=== PATIENT | male | born 1935 | race Two or more races ===

== ENCOUNTER 2017-06-07 06:32 | Outpatient (CLI) | payer OTHER ==
[~2017-06-07 06:32] MED LIST: AVANDARYL 4 MG-1 TA2 PO; CIPRO500 MG PO; COUMADIN6 MG PO; COZAAR100 MG PO; GLIMEPIRIDE4 MG; JANUMET 50-1,1 UDTAB; LOPERAMIDE2 MG PO; VYTORIN 10-20 M1 TAB PO
== END 2017-06-07 06:39 | disposition home or self-care (01) ==
LOC: LAB 06:32
DX: D50.0 Iron deficiency anemia secondary to blood loss (chronic) (principal); E11.65 Type 2 diabetes mellitus with hyperglycemia; Z12.11 Encounter for screening for malignant neoplasm of colon; K62.5 Hemorrhage of anus and rectum; R10.9 Unspecified abdominal pain; E78.2 Mixed hyperlipidemia; N40.0 Benign prostatic hyperplasia without lower urinary tract symptoms; E03.0 Congenital hypothyroidism with diffuse goiter; N39.0 Urinary tract infection, site not specified; E55.9 Vitamin D deficiency, unspecified; M81.0 Age-related osteoporosis without current pathological fracture; E11.29 Type 2 diabetes mellitus with other diabetic kidney complication; I48.91 Unspecified atrial fibrillation

== ENCOUNTER 2017-06-10 08:16 | Outpatient (CLI) | payer OTHER | END 2017-06-10 08:26 | disposition home or self-care (01) | LOC: LAB 08:16 | DX: D50.0 Iron deficiency anemia secondary to blood loss (chronic) (principal); E11.65 Type 2 diabetes mellitus with hyperglycemia; Z12.11 Encounter for screening for malignant neoplasm of colon; K62.5 Hemorrhage of anus and rectum; R10.9 Unspecified abdominal pain; E78.2 Mixed hyperlipidemia; N40.0 Benign prostatic hyperplasia without lower urinary tract symptoms; E03.0 Congenital hypothyroidism with diffuse goiter; N39.0 Urinary tract infection, site not specified; E55.9 Vitamin D deficiency, unspecified; M81.0 Age-related osteoporosis without current pathological fracture; E11.29 Type 2 diabetes mellitus with other diabetic kidney complication ==

== ENCOUNTER → 2017-06-26 10:04 | Outpatient (CLI) | payer OTHER | END | disposition home or self-care (01) | LOC: LAB 10:04 | DX: I48.2 Chronic atrial fibrillation (principal) ==

== ENCOUNTER → 2017-09-02 06:34 | Outpatient (CLI) | payer OTHER | END | disposition home or self-care (01) | LOC: LAB 06:34 | DX: D68.8 Other specified coagulation defects (principal) ==

== ENCOUNTER → 2017-09-10 | Outpatient (CLI) | payer OTHER | END | disposition home or self-care (01) | LOC: WOUND MED 07:54 → EDSTATUS 07:55 | DX: E11.622 Type 2 diabetes mellitus with other skin ulcer (principal); L97.322 Non-pressure chronic ulcer of left ankle with fat layer exposed | CPT/HCPCS: 11042; A4554; A4930; A6216; A6219; G0463 ==

== ENCOUNTER 2017-09-16 07:18 | Outpatient (CLI) | payer OTHER | END 2017-09-16 07:30 | disposition home or self-care (01) | LOC: LAB 07:18 | DX: D68.59 Other primary thrombophilia (principal); E72.11 Homocystinuria; E72.12 Methylenetetrahydrofolate reductase deficiency; D68.61 Antiphospholipid syndrome; D50.0 Iron deficiency anemia secondary to blood loss (chronic); D51.8 Other vitamin B12 deficiency anemias; R97.0 Elevated carcinoembryonic antigen [CEA]; I80.222 Phlebitis and thrombophlebitis of left popliteal vein; I26.99 Other pulmonary embolism without acute cor pulmonale; I48.2 Chronic atrial fibrillation; I10 Essential (primary) hypertension; E08.65 Diabetes mellitus due to underlying condition with hyperglycemia; E73.8 Other lactose intolerance; Z79.01 Long term (current) use of anticoagulants ==

== ENCOUNTER → 2017-09-17 | Outpatient (CLI) | payer OTHER | END | disposition home or self-care (01) | LOC: WOUND MED 07:11 | DX: E10.622 Type 1 diabetes mellitus with other skin ulcer (principal); L97.322 Non-pressure chronic ulcer of left ankle with fat layer exposed | CPT/HCPCS: 11042; A4554; A4930; A6216 ==

== ENCOUNTER → 2017-09-24 | Outpatient (CLI) | payer OTHER | END | disposition home or self-care (01) | LOC: WOUND MED 08:10 | DX: E11.622 Type 2 diabetes mellitus with other skin ulcer (principal); L97.322 Non-pressure chronic ulcer of left ankle with fat layer exposed | CPT/HCPCS: 11042; A4554; A4930; A6216 ==

== ENCOUNTER → 2017-10-01 | Outpatient (CLI) | payer OTHER | END | disposition home or self-care (01) | LOC: WOUND MED 07:53 | DX: E10.622 Type 1 diabetes mellitus with other skin ulcer (principal); L97.322 Non-pressure chronic ulcer of left ankle with fat layer exposed | CPT/HCPCS: 11042; A4554; A4930; A6216; A6219 ==

== ENCOUNTER → 2017-10-22 | Outpatient (CLI) | payer OTHER | END | disposition home or self-care (01) | LOC: WOUND MED 07:56 | DX: E10.622 Type 1 diabetes mellitus with other skin ulcer (principal); L97.322 Non-pressure chronic ulcer of left ankle with fat layer exposed | CPT/HCPCS: 11042; A4554; A4930; A6216 ==

== ENCOUNTER 2017-10-29 07:00 | Outpatient (CLI) | payer OTHER | END 2017-10-29 07:20 | disposition home or self-care (01) | LOC: LAB 07:00 | DX: I11.9 Hypertensive heart disease without heart failure (principal) ==

== ENCOUNTER → 2017-10-29 | Outpatient (CLI) | payer OTHER | END | disposition home or self-care (01) | LOC: WOUND MED 08:03 | DX: E10.622 Type 1 diabetes mellitus with other skin ulcer (principal); L97.322 Non-pressure chronic ulcer of left ankle with fat layer exposed | CPT/HCPCS: 11042; A4554; A4930; A6216; A6266 ==

== ENCOUNTER → 2017-11-05 | Outpatient (CLI) | payer OTHER | END | disposition home or self-care (01) | LOC: WOUND MED 07:43 | DX: E10.622 Type 1 diabetes mellitus with other skin ulcer (principal); L97.322 Non-pressure chronic ulcer of left ankle with fat layer exposed | CPT/HCPCS: G0463; A4554; A4930; A6216 ==

== ENCOUNTER 2017-11-07 06:42 | Outpatient (CLI) | payer OTHER | END 2017-11-07 06:49 | disposition home or self-care (01) | LOC: LAB 06:42 | DX: D50.0 Iron deficiency anemia secondary to blood loss (chronic) (principal); E11.65 Type 2 diabetes mellitus with hyperglycemia; E78.2 Mixed hyperlipidemia; E03.0 Congenital hypothyroidism with diffuse goiter; N39.0 Urinary tract infection, site not specified; I82.409 Acute embolism and thrombosis of unspecified deep veins of unspecified lower extremity ==

== ENCOUNTER → 2017-12-20 06:58 | Outpatient (CLI) | payer OTHER | END | disposition home or self-care (01) | LOC: LAB 06:58 | DX: D68.61 Antiphospholipid syndrome (principal); Z86.010 Personal history of colon polyps; K43.2 Incisional hernia without obstruction or gangrene; D50.8 Other iron deficiency anemias ==

== ENCOUNTER 2017-12-23 15:13 | Outpatient (CLI) | payer OTHER | END 2017-12-23 15:18 | disposition home or self-care (01) | LOC: RAD 15:13 | DX: J44.1 Chronic obstructive pulmonary disease with (acute) exacerbation (principal) ==

== ENCOUNTER 2017-12-23 15:29 | Outpatient (CLI) | payer OTHER | END 2017-12-23 15:34 | disposition home or self-care (01) | LOC: LAB 15:29 | DX: A49.2 Hemophilus influenzae infection, unspecified site (principal) ==

== ENCOUNTER → 2018-01-23 | Outpatient (CLI) | payer OTHER | END | disposition home or self-care (01) | LOC: WOUND MED 07:32 | DX: E11.622 Type 2 diabetes mellitus with other skin ulcer (principal); L97.322 Non-pressure chronic ulcer of left ankle with fat layer exposed | CPT/HCPCS: 11042; A4554; A4930; A6216; A6266; G0463 ==

== ENCOUNTER → 2018-02-06 | Outpatient (CLI) | payer OTHER | END | disposition home or self-care (01) | LOC: WOUND MED 08:00 | DX: E11.621 Type 2 diabetes mellitus with foot ulcer (principal); L97.322 Non-pressure chronic ulcer of left ankle with fat layer exposed | CPT/HCPCS: 11042; A4554; A4930; A6212; A6216; A6219; A6266 ==

== ENCOUNTER → 2018-02-13 | Outpatient (CLI) | payer OTHER | END | disposition home or self-care (01) | LOC: WOUND MED 07:19 | DX: E11.621 Type 2 diabetes mellitus with foot ulcer (principal); L97.322 Non-pressure chronic ulcer of left ankle with fat layer exposed | CPT/HCPCS: 11042; A4554; A4930; A6216; A6266 ==

== ENCOUNTER → 2018-02-21 | Outpatient (CLI) | payer OTHER | END | disposition home or self-care (01) | LOC: WOUND MED 07:18 | DX: E10.622 Type 1 diabetes mellitus with other skin ulcer (principal); L97.322 Non-pressure chronic ulcer of left ankle with fat layer exposed | CPT/HCPCS: 11042; A4554; A4930; A6216; A6219 ==

== ENCOUNTER → 2018-02-28 | Outpatient (CLI) | payer OTHER | END | disposition home or self-care (01) | LOC: WOUND MED 07:19 | DX: E11.622 Type 2 diabetes mellitus with other skin ulcer (principal); L97.322 Non-pressure chronic ulcer of left ankle with fat layer exposed | CPT/HCPCS: 11042; A4554; A4930; A6216 ==

== ENCOUNTER → 2018-03-07 | Outpatient (CLI) | payer OTHER | END | disposition home or self-care (01) | LOC: WOUND CARE 07:09 → WOUND MED 07:09 | DX: E11.622 Type 2 diabetes mellitus with other skin ulcer (principal); L97.322 Non-pressure chronic ulcer of left ankle with fat layer exposed | CPT/HCPCS: 11042; A4554; A4930; A6216; A6219 ==

== ENCOUNTER → 2018-03-14 | Outpatient (CLI) | payer OTHER | END | disposition home or self-care (01) | LOC: WOUND MED 07:11 | DX: E11.622 Type 2 diabetes mellitus with other skin ulcer (principal); L97.322 Non-pressure chronic ulcer of left ankle with fat layer exposed | CPT/HCPCS: 11042; A4554; A4930; A6021; A6216; A6266 ==

== ENCOUNTER → 2018-03-21 | Outpatient (CLI) | payer OTHER | END | disposition home or self-care (01) | LOC: WOUND MED 07:16 | DX: E11.622 Type 2 diabetes mellitus with other skin ulcer (principal); L97.322 Non-pressure chronic ulcer of left ankle with fat layer exposed | CPT/HCPCS: 11042; A4554; A4930; A6216; A6219 ==

== ENCOUNTER → 2018-03-28 | Outpatient (CLI) | payer OTHER | END | disposition home or self-care (01) | LOC: WOUND MED 07:19 | DX: E11.622 Type 2 diabetes mellitus with other skin ulcer (principal); L97.322 Non-pressure chronic ulcer of left ankle with fat layer exposed | CPT/HCPCS: 11042; A4554; A4930; A6216 ==

== ENCOUNTER → 2018-04-04 | Outpatient (CLI) | payer OTHER | END | disposition home or self-care (01) | LOC: WOUND MED 07:39 | DX: E10.622 Type 1 diabetes mellitus with other skin ulcer (principal); L97.322 Non-pressure chronic ulcer of left ankle with fat layer exposed | CPT/HCPCS: 11042; A4554; A4930; A6216; A6219 ==

== ENCOUNTER → 2018-04-11 06:32 | Outpatient (CLI) | payer OTHER | END | disposition home or self-care (01) | LOC: LAB 06:32 | DX: D50.0 Iron deficiency anemia secondary to blood loss (chronic) (principal); E11.65 Type 2 diabetes mellitus with hyperglycemia; Z12.11 Encounter for screening for malignant neoplasm of colon; K62.5 Hemorrhage of anus and rectum; E78.00 Pure hypercholesterolemia, unspecified; N40.0 Benign prostatic hyperplasia without lower urinary tract symptoms; E03.0 Congenital hypothyroidism with diffuse goiter; N39.0 Urinary tract infection, site not specified; E55.9 Vitamin D deficiency, unspecified; M81.0 Age-related osteoporosis without current pathological fracture; R10.84 Generalized abdominal pain ==

== ENCOUNTER → 2018-04-11 | Outpatient (CLI) | payer OTHER | END | disposition home or self-care (01) | LOC: WOUND MED 07:22 | DX: E10.622 Type 1 diabetes mellitus with other skin ulcer (principal); L97.322 Non-pressure chronic ulcer of left ankle with fat layer exposed | CPT/HCPCS: 11042; A4554; A4930; A6216; A6219 ==

== ENCOUNTER → 2018-04-18 | Outpatient (CLI) | payer OTHER | END | disposition home or self-care (01) | LOC: WOUND MED 07:16 | DX: E11.622 Type 2 diabetes mellitus with other skin ulcer (principal); L97.322 Non-pressure chronic ulcer of left ankle with fat layer exposed | CPT/HCPCS: 11042; A4554; A4930; A6216; A6219 ==

== ENCOUNTER → 2018-05-08 | Outpatient (CLI) | payer OTHER | END | disposition home or self-care (01) | LOC: WOUND MED 07:56 | DX: E11.622 Type 2 diabetes mellitus with other skin ulcer (principal); L97.322 Non-pressure chronic ulcer of left ankle with fat layer exposed | CPT/HCPCS: 11042; A4554; A4930; A6216; A6266 ==

== ENCOUNTER → 2018-05-16 | Outpatient (CLI) | payer OTHER | END | disposition home or self-care (01) | LOC: WOUND MED 07:33 | DX: E11.622 Type 2 diabetes mellitus with other skin ulcer (principal); L97.322 Non-pressure chronic ulcer of left ankle with fat layer exposed | CPT/HCPCS: 11042; A4554; A4930; A6216; A6219 ==

== ENCOUNTER → 2018-05-23 | Outpatient (CLI) | payer OTHER | END | disposition home or self-care (01) | LOC: WOUND MED 08:58 | DX: E11.622 Type 2 diabetes mellitus with other skin ulcer (principal); L97.322 Non-pressure chronic ulcer of left ankle with fat layer exposed | CPT/HCPCS: 11042; A4554; A4930; A6216 ==

== ENCOUNTER → 2018-05-30 | Outpatient (CLI) | payer OTHER | END | disposition home or self-care (01) | LOC: WOUND MED 07:32 | DX: E11.622 Type 2 diabetes mellitus with other skin ulcer (principal); L97.322 Non-pressure chronic ulcer of left ankle with fat layer exposed | CPT/HCPCS: 11042; A4554; A4930; A6196; A6216; A6266 ==

== ENCOUNTER → 2018-06-06 | Outpatient (CLI) | payer OTHER | END | disposition home or self-care (01) | LOC: WOUND MED 07:16 | DX: E11.622 Type 2 diabetes mellitus with other skin ulcer (principal); L97.322 Non-pressure chronic ulcer of left ankle with fat layer exposed | CPT/HCPCS: 97602; A4554; A4930; A6216; A6219; A6266 ==

== ENCOUNTER → 2018-06-13 | Outpatient (CLI) | payer OTHER | END | disposition home or self-care (01) | LOC: WOUND MED 07:09 | DX: E11.622 Type 2 diabetes mellitus with other skin ulcer (principal); L97.322 Non-pressure chronic ulcer of left ankle with fat layer exposed | CPT/HCPCS: 11042; A4554; A4930; A6216; A6219 ==

== ENCOUNTER → 2018-06-20 | Outpatient (CLI) | payer OTHER | END | disposition home or self-care (01) | LOC: WOUND MED 07:38 | DX: E11.622 Type 2 diabetes mellitus with other skin ulcer (principal); L97.322 Non-pressure chronic ulcer of left ankle with fat layer exposed | CPT/HCPCS: 11042; A4554; A4930; A6021; A6216; A6219 ==

== ENCOUNTER → 2018-06-30 | Outpatient (CLI) | payer OTHER | END | disposition home or self-care (01) | LOC: WOUND MED 07:25 | DX: E11.622 Type 2 diabetes mellitus with other skin ulcer (principal); L97.322 Non-pressure chronic ulcer of left ankle with fat layer exposed | CPT/HCPCS: 11042; A4554; A4930; A6196; A6216 ==

== ENCOUNTER → 2018-07-07 | Outpatient (CLI) | payer OTHER | END | disposition home or self-care (01) | LOC: WOUND MED 07:28 | DX: E11.622 Type 2 diabetes mellitus with other skin ulcer (principal); L97.322 Non-pressure chronic ulcer of left ankle with fat layer exposed | CPT/HCPCS: 11042; A4554; A4930; A6196; A6216; A6266 ==

== ENCOUNTER → 2018-07-14 | Outpatient (CLI) | payer OTHER | END | disposition home or self-care (01) | LOC: WOUND MED 07:50 | DX: E11.622 Type 2 diabetes mellitus with other skin ulcer (principal); L97.322 Non-pressure chronic ulcer of left ankle with fat layer exposed | CPT/HCPCS: 11042; A4554; A4930; A6216; A6219 ==

== ENCOUNTER → 2018-07-21 | Outpatient (CLI) | payer OTHER | END | disposition home or self-care (01) | LOC: WOUND MED 07:11 | DX: E11.622 Type 2 diabetes mellitus with other skin ulcer (principal); L97.322 Non-pressure chronic ulcer of left ankle with fat layer exposed | CPT/HCPCS: 11042; A4554; A4930; A6216; A6219 ==

== ENCOUNTER → 2018-07-28 | Outpatient (CLI) | payer OTHER | END | disposition home or self-care (01) | LOC: WOUND MED 07:33 | DX: E11.622 Type 2 diabetes mellitus with other skin ulcer (principal); L97.322 Non-pressure chronic ulcer of left ankle with fat layer exposed | CPT/HCPCS: 11042; A4554; A4930; A6216; A6219 ==

== ENCOUNTER → 2018-08-04 | Outpatient (CLI) | payer OTHER | END | disposition home or self-care (01) | LOC: WOUND MED 07:33 | DX: E11.622 Type 2 diabetes mellitus with other skin ulcer (principal); L97.322 Non-pressure chronic ulcer of left ankle with fat layer exposed | CPT/HCPCS: 11042; A4554; A4930; A6216; A6219 ==

== ENCOUNTER → 2018-08-11 | Outpatient (CLI) | payer OTHER | END | disposition home or self-care (01) | LOC: WOUND MED 07:50 | DX: E11.622 Type 2 diabetes mellitus with other skin ulcer (principal); L97.322 Non-pressure chronic ulcer of left ankle with fat layer exposed | CPT/HCPCS: 11042; A4554; A4930; A6216; A6219 ==

== ENCOUNTER 2018-08-14 07:03 | Outpatient (CLI) | payer OTHER | END 2018-08-14 07:07 | disposition home or self-care (01) | LOC: LAB 07:03 | DX: I48.1 Persistent atrial fibrillation (principal); I11.9 Hypertensive heart disease without heart failure ==

== ENCOUNTER → 2018-08-18 | Outpatient (CLI) | payer OTHER | END | disposition home or self-care (01) | LOC: WOUND MED 08:28 | DX: E11.622 Type 2 diabetes mellitus with other skin ulcer (principal); L97.322 Non-pressure chronic ulcer of left ankle with fat layer exposed | CPT/HCPCS: 11042; A4554; A4930; A6196; A6216; A6219 ==

== ENCOUNTER → 2018-08-25 | Outpatient (CLI) | payer OTHER | END | disposition home or self-care (01) | LOC: WOUND CARE 09:59 → WOUND MED 09:59 → EDSTATUS 12:37 | DX: E11.622 Type 2 diabetes mellitus with other skin ulcer (principal); L97.322 Non-pressure chronic ulcer of left ankle with fat layer exposed | CPT/HCPCS: 11042; A4554; A4930; A6216; A6219 ==

== ENCOUNTER → 2018-09-01 | Outpatient (CLI) | payer OTHER | END | disposition home or self-care (01) | LOC: WOUND MED 07:35 | DX: E10.622 Type 1 diabetes mellitus with other skin ulcer (principal); L97.322 Non-pressure chronic ulcer of left ankle with fat layer exposed | CPT/HCPCS: 11042; A4554; A4930; A6196; A6216; A6219 ==

== ENCOUNTER → 2018-09-08 | Outpatient (CLI) | payer OTHER | END | disposition home or self-care (01) | LOC: WOUND MED 07:54 | DX: E10.622 Type 1 diabetes mellitus with other skin ulcer (principal); L97.322 Non-pressure chronic ulcer of left ankle with fat layer exposed | CPT/HCPCS: 11042; A4554; A4930; A6196; A6216 ==

== ENCOUNTER 2018-09-15 07:40 | Outpatient (CLI) | payer OTHER | END 2018-09-15 12:51 | disposition home or self-care (01) | LOC: LAB 07:40 | DX: E72.11 Homocystinuria (principal); E72.12 Methylenetetrahydrofolate reductase deficiency; D50.0 Iron deficiency anemia secondary to blood loss (chronic); R97.0 Elevated carcinoembryonic antigen [CEA]; I80.222 Phlebitis and thrombophlebitis of left popliteal vein; Z79.01 Long term (current) use of anticoagulants; I26.99 Other pulmonary embolism without acute cor pulmonale; I48.2 Chronic atrial fibrillation; I10 Essential (primary) hypertension; E08.65 Diabetes mellitus due to underlying condition with hyperglycemia; I25.110 Atherosclerotic heart disease of native coronary artery with unstable angina pectoris; I45.6 Pre-excitation syndrome; I73.89 Other specified peripheral vascular diseases; D50.8 Other iron deficiency anemias; D51.8 Other vitamin B12 deficiency anemias; K90.89 Other intestinal malabsorption; D68.8 Other specified coagulation defects; D63.1 Anemia in chronic kidney disease; R97.8 Other abnormal tumor markers ==

== ENCOUNTER → 2018-09-15 | Outpatient (CLI) | payer OTHER | END | disposition home or self-care (01) | LOC: WOUND MED 07:54 | DX: E10.622 Type 1 diabetes mellitus with other skin ulcer (principal); L97.322 Non-pressure chronic ulcer of left ankle with fat layer exposed | CPT/HCPCS: 11042; A4554; A4930; A6196; A6216; A6219 ==

== ENCOUNTER → 2018-09-22 | Outpatient (CLI) | payer OTHER | END | disposition home or self-care (01) | LOC: WOUND MED 07:44 | DX: E10.622 Type 1 diabetes mellitus with other skin ulcer (principal); L97.322 Non-pressure chronic ulcer of left ankle with fat layer exposed | CPT/HCPCS: 11042; A4554; A4930; A6196; A6216; A6219 ==

== ENCOUNTER → 2018-09-29 | Outpatient (CLI) | payer OTHER | END | disposition home or self-care (01) | LOC: WOUND MED 07:26 | DX: E10.622 Type 1 diabetes mellitus with other skin ulcer (principal); L97.322 Non-pressure chronic ulcer of left ankle with fat layer exposed | CPT/HCPCS: 11042; A4554; A4930; A6216; A6219 ==

== ENCOUNTER → 2018-10-06 | Outpatient (CLI) | payer OTHER | END | disposition home or self-care (01) | LOC: WOUND MED 07:32 | DX: E10.622 Type 1 diabetes mellitus with other skin ulcer (principal); L97.322 Non-pressure chronic ulcer of left ankle with fat layer exposed | CPT/HCPCS: 11042; A4554; A4930; A6216; A6219 ==

== ENCOUNTER → 2018-10-13 | Outpatient (CLI) | payer OTHER | END | disposition home or self-care (01) | LOC: WOUND MED 07:20 | DX: E10.622 Type 1 diabetes mellitus with other skin ulcer (principal); L97.322 Non-pressure chronic ulcer of left ankle with fat layer exposed | CPT/HCPCS: 11042; A4554; A4930; A6216; A6219 ==

== ENCOUNTER → 2018-10-20 | Outpatient (CLI) | payer OTHER | END | disposition home or self-care (01) | LOC: WOUND MED 07:45 | DX: E10.622 Type 1 diabetes mellitus with other skin ulcer (principal); L97.322 Non-pressure chronic ulcer of left ankle with fat layer exposed | CPT/HCPCS: 11042; A4554; A4930; A6216; A6219 ==

== ENCOUNTER → 2018-11-03 | Outpatient (CLI) | payer OTHER | END | disposition home or self-care (01) | LOC: WOUND MED 08:02 | DX: E10.622 Type 1 diabetes mellitus with other skin ulcer (principal); L97.322 Non-pressure chronic ulcer of left ankle with fat layer exposed | CPT/HCPCS: 11042; A4554; A4930; A6216; A6219 ==

== ENCOUNTER → 2018-11-10 | Outpatient (CLI) | payer OTHER | END | disposition home or self-care (01) | LOC: WOUND MED 07:49 | DX: E10.622 Type 1 diabetes mellitus with other skin ulcer (principal); L97.322 Non-pressure chronic ulcer of left ankle with fat layer exposed | CPT/HCPCS: 11042; A4554; A4930; A6021; A6216; A6219 ==

== ENCOUNTER → 2018-11-17 | Outpatient (CLI) | payer OTHER | END | disposition home or self-care (01) | LOC: WOUND MED 07:34 | DX: E10.621 Type 1 diabetes mellitus with foot ulcer (principal); L97.322 Non-pressure chronic ulcer of left ankle with fat layer exposed | CPT/HCPCS: 11042; A4554; A4930; A6021; A6216; A6219 ==

== ENCOUNTER → 2018-11-18 06:52 | Outpatient (CLI) | payer OTHER | END | disposition home or self-care (01) | LOC: LAB 06:52 | DX: D64.89 Other specified anemias (principal); I10 Essential (primary) hypertension; E78.00 Pure hypercholesterolemia, unspecified; N39.0 Urinary tract infection, site not specified; E03.8 Other specified hypothyroidism; E11.69 Type 2 diabetes mellitus with other specified complication ==

== ENCOUNTER → 2018-11-24 | Outpatient (CLI) | payer OTHER | END | disposition home or self-care (01) | LOC: WOUND MED 07:47 | DX: E10.622 Type 1 diabetes mellitus with other skin ulcer (principal); L97.322 Non-pressure chronic ulcer of left ankle with fat layer exposed | CPT/HCPCS: 11042; A4554; A4930; A6216; A6219 ==

== ENCOUNTER → 2018-12-01 | Outpatient (CLI) | payer OTHER | END | disposition home or self-care (01) | LOC: WOUND MED 07:36 | DX: E10.622 Type 1 diabetes mellitus with other skin ulcer (principal); L97.322 Non-pressure chronic ulcer of left ankle with fat layer exposed | CPT/HCPCS: 11042; A4554; A4930; A6196; A6197; A6216; A6219 ==

== ENCOUNTER → 2018-12-08 | Outpatient (CLI) | payer OTHER | END | disposition home or self-care (01) | LOC: WOUND MED 08:01 | DX: E10.622 Type 1 diabetes mellitus with other skin ulcer (principal); L97.322 Non-pressure chronic ulcer of left ankle with fat layer exposed | CPT/HCPCS: 11042; A4554; A4930; A6216; A6219 ==

== ENCOUNTER → 2018-12-15 | Outpatient (CLI) | payer OTHER | END | disposition home or self-care (01) | LOC: WOUND MED 07:25 | DX: E10.622 Type 1 diabetes mellitus with other skin ulcer (principal); L97.322 Non-pressure chronic ulcer of left ankle with fat layer exposed | CPT/HCPCS: 11042; A4554; A4930; A6216; A6219 ==

== ENCOUNTER → 2018-12-22 | Outpatient (CLI) | payer OTHER | END | disposition home or self-care (01) | LOC: WOUND MED 07:00 | DX: E10.622 Type 1 diabetes mellitus with other skin ulcer (principal); L97.322 Non-pressure chronic ulcer of left ankle with fat layer exposed | CPT/HCPCS: 11042; A4554; A4930; A6196; A6216 ==

== ENCOUNTER → 2018-12-29 | Outpatient (CLI) | payer OTHER | END | disposition home or self-care (01) | LOC: WOUND MED 07:00 → EDSTATUS 07:00 → WOUND CARE 07:00 → WOUND MED 07:29 | DX: E10.622 Type 1 diabetes mellitus with other skin ulcer (principal); L97.322 Non-pressure chronic ulcer of left ankle with fat layer exposed | CPT/HCPCS: 11042; A4554; A4930; A6216; A6219 ==

== ENCOUNTER → 2019-01-05 | Outpatient (CLI) | payer OTHER | END | disposition home or self-care (01) | LOC: WOUND MED 07:00 | DX: E10.622 Type 1 diabetes mellitus with other skin ulcer (principal); L97.322 Non-pressure chronic ulcer of left ankle with fat layer exposed | CPT/HCPCS: 11042; A4554; A4930; A6216; A6219 ==

== ENCOUNTER → 2019-01-12 | Outpatient (CLI) | payer OTHER | END | disposition home or self-care (01) | LOC: WOUND MED 09:09 | DX: E10.622 Type 1 diabetes mellitus with other skin ulcer (principal); L97.322 Non-pressure chronic ulcer of left ankle with fat layer exposed | CPT/HCPCS: 11042; A4554; A4930; A6216; A6219 ==

== ENCOUNTER 2019-01-19 07:12 | Outpatient (CLI) | payer OTHER | END 2019-01-19 07:28 | disposition home or self-care (01) | LOC: LAB 07:12 | DX: E08.65 Diabetes mellitus due to underlying condition with hyperglycemia (principal); R97.0 Elevated carcinoembryonic antigen [CEA]; R97.20 Elevated prostate specific antigen [PSA]; I10 Essential (primary) hypertension; K90.89 Other intestinal malabsorption; I80.222 Phlebitis and thrombophlebitis of left popliteal vein; I73.89 Other specified peripheral vascular diseases; R19.5 Other fecal abnormalities; E72.11 Homocystinuria; Z79.01 Long term (current) use of anticoagulants; D52.8 Other folate deficiency anemias; D50.8 Other iron deficiency anemias; E72.12 Methylenetetrahydrofolate reductase deficiency; I26.99 Other pulmonary embolism without acute cor pulmonale; I25.110 Atherosclerotic heart disease of native coronary artery with unstable angina pectoris; D51.8 Other vitamin B12 deficiency anemias; D50.0 Iron deficiency anemia secondary to blood loss (chronic); I48.2 Chronic atrial fibrillation; I45.6 Pre-excitation syndrome; R97.8 Other abnormal tumor markers; D63.0 Anemia in neoplastic disease ==

== ENCOUNTER → 2019-01-19 | Outpatient (CLI) | payer OTHER | END | disposition home or self-care (01) | LOC: WOUND MED 07:00 | DX: E10.622 Type 1 diabetes mellitus with other skin ulcer (principal); L97.322 Non-pressure chronic ulcer of left ankle with fat layer exposed | CPT/HCPCS: 11042; A4554; A4930; A6196; A6216; A6219 ==

== ENCOUNTER → 2019-01-26 | Outpatient (CLI) | payer OTHER | END | disposition home or self-care (01) | LOC: WOUND CARE 07:00 | DX: E10.622 Type 1 diabetes mellitus with other skin ulcer (principal); L97.322 Non-pressure chronic ulcer of left ankle with fat layer exposed | CPT/HCPCS: 11042; A4554; A4930; A6196; A6216; A6219 ==

== ENCOUNTER → 2019-02-02 | Outpatient (CLI) | payer OTHER | END | disposition home or self-care (01) | LOC: WOUND MED 08:21 | DX: E10.622 Type 1 diabetes mellitus with other skin ulcer (principal); L97.322 Non-pressure chronic ulcer of left ankle with fat layer exposed | CPT/HCPCS: 11042; A4554; A4930; A6216; A6219 ==

== ENCOUNTER → 2019-02-09 | Outpatient (CLI) | payer OTHER | END | disposition home or self-care (01) | LOC: WOUND MED 07:30 | DX: E10.622 Type 1 diabetes mellitus with other skin ulcer (principal); L97.322 Non-pressure chronic ulcer of left ankle with fat layer exposed | CPT/HCPCS: 11042; A4554; A4930; A6216; A6220 ==

== ENCOUNTER → 2019-02-16 | Outpatient (CLI) | payer OTHER | END | disposition home or self-care (01) | LOC: WOUND CARE 07:45 → WOUND MED 07:45 | DX: E10.622 Type 1 diabetes mellitus with other skin ulcer (principal); L97.322 Non-pressure chronic ulcer of left ankle with fat layer exposed | CPT/HCPCS: 11042; A4554; A4930; A6216; A6266 ==

== ENCOUNTER → 2019-02-23 | Outpatient (CLI) | payer OTHER | END | disposition home or self-care (01) | LOC: WOUND MED 07:39 | DX: E10.622 Type 1 diabetes mellitus with other skin ulcer (principal); L97.322 Non-pressure chronic ulcer of left ankle with fat layer exposed | CPT/HCPCS: 11042; A4554; A4930; A6196; A6216; A6219 ==

== ENCOUNTER → 2019-03-02 | Outpatient (CLI) | payer OTHER | END | disposition home or self-care (01) | LOC: WOUND MED 08:42 | DX: E10.622 Type 1 diabetes mellitus with other skin ulcer (principal); L97.322 Non-pressure chronic ulcer of left ankle with fat layer exposed | CPT/HCPCS: 11042; A4554; A4930; A6216; A6219 ==

== ENCOUNTER 2019-03-09 08:47 | Outpatient (CLI) | payer OTHER | END 2019-03-09 09:00 | disposition home or self-care (01) | LOC: WOUND MED 08:47 | DX: E10.622 Type 1 diabetes mellitus with other skin ulcer (principal); L97.322 Non-pressure chronic ulcer of left ankle with fat layer exposed | CPT/HCPCS: 11042; A4554; A4930; A6216; A6219 ==

== ENCOUNTER 2019-03-16 09:18 | Outpatient (CLI) | payer OTHER | END 2019-03-16 10:18 | disposition home or self-care (01) | LOC: WOUND MED 09:18 | DX: E10.622 Type 1 diabetes mellitus with other skin ulcer (principal); L97.322 Non-pressure chronic ulcer of left ankle with fat layer exposed | CPT/HCPCS: 11042; A4554; A4930; A6216; A6219 ==

== ENCOUNTER 2019-03-23 06:12 | Outpatient (CLI) | payer OTHER | END 2019-03-23 07:00 | disposition home or self-care (01) | LOC: WOUND MED 06:12 | DX: E10.622 Type 1 diabetes mellitus with other skin ulcer (principal); L97.322 Non-pressure chronic ulcer of left ankle with fat layer exposed | CPT/HCPCS: 11042; A4554; A4930; A6216; A6219 ==

== ENCOUNTER 2019-03-30 08:11 | Outpatient (CLI) | payer OTHER | END 2019-03-30 09:00 | disposition home or self-care (01) | LOC: WOUND MED 08:11 | DX: E10.622 Type 1 diabetes mellitus with other skin ulcer (principal); L97.322 Non-pressure chronic ulcer of left ankle with fat layer exposed | CPT/HCPCS: 11042; A4554; A4930; A6216; A6219 ==

== ENCOUNTER 2019-04-06 08:50 | Outpatient (CLI) | payer OTHER | END 2019-04-06 10:00 | disposition home or self-care (01) | LOC: WOUND MED 08:50 | DX: E10.622 Type 1 diabetes mellitus with other skin ulcer (principal); L97.322 Non-pressure chronic ulcer of left ankle with fat layer exposed | CPT/HCPCS: 11042; A4554; A4930; A6216; A6219 ==

== ENCOUNTER 2019-04-13 06:35 | Outpatient (CLI) | payer OTHER | END 2019-04-13 10:00 | disposition home or self-care (01) | LOC: WOUND MED 06:35 | DX: E10.622 Type 1 diabetes mellitus with other skin ulcer (principal); L97.322 Non-pressure chronic ulcer of left ankle with fat layer exposed | CPT/HCPCS: 11042; A4554; A4930; A6216; A6219 ==

== ENCOUNTER 2019-04-20 07:48 | Outpatient (CLI) | payer OTHER | END 2019-04-20 08:00 | disposition home or self-care (01) | LOC: WOUND MED 07:48 | DX: E10.622 Type 1 diabetes mellitus with other skin ulcer (principal); L97.322 Non-pressure chronic ulcer of left ankle with fat layer exposed | CPT/HCPCS: 11042; A4554; A4930; A6216; A6220 ==

== ENCOUNTER 2019-04-27 06:59 | Outpatient (CLI) | payer OTHER | END 2019-04-27 07:07 | disposition home or self-care (01) | LOC: LAB 06:59 | DX: E72.11 Homocystinuria (principal); E72.12 Methylenetetrahydrofolate reductase deficiency; D50.0 Iron deficiency anemia secondary to blood loss (chronic); R97.0 Elevated carcinoembryonic antigen [CEA]; I80.222 Phlebitis and thrombophlebitis of left popliteal vein; Z79.01 Long term (current) use of anticoagulants; I26.99 Other pulmonary embolism without acute cor pulmonale; E08.65 Diabetes mellitus due to underlying condition with hyperglycemia; I25.110 Atherosclerotic heart disease of native coronary artery with unstable angina pectoris; I45.6 Pre-excitation syndrome; I73.89 Other specified peripheral vascular diseases; D50.8 Other iron deficiency anemias; D51.8 Other vitamin B12 deficiency anemias; K90.89 Other intestinal malabsorption; E55.9 Vitamin D deficiency, unspecified; R97.20 Elevated prostate specific antigen [PSA]; I11.9 Hypertensive heart disease without heart failure ==

== ENCOUNTER 2019-04-27 07:39 | Outpatient (CLI) | payer OTHER | END 2019-04-27 08:30 | disposition home or self-care (01) | LOC: WOUND MED 07:39 | DX: E10.622 Type 1 diabetes mellitus with other skin ulcer (principal); L97.322 Non-pressure chronic ulcer of left ankle with fat layer exposed | CPT/HCPCS: 11042; A4554; A4930; A6216; A6219 ==

== ENCOUNTER 2019-05-03 08:21 | Emergency (ER) | payer OTHER ==
[~2019-05-03] VITALS: Ht 170.2 cm; Wt 95.3 kg
[2019-05-03] MEDS ORDERED: APRESOLINE 10MG10 MG PO (08:45)
== END 2019-05-03 13:53 | disposition home or self-care (01) ==
LOC: ER 08:21
DX: M54.5 Low back pain (principal)

== ENCOUNTER 2019-05-04 09:02 | Outpatient (CLI) | payer OTHER ==
[~2019-05-04 09:02] MED LIST changes: +APRESOLINE 10MG10 MG PO
== END 2019-05-04 10:00 | disposition home or self-care (01) ==
LOC: WOUND MED 09:02
DX: E10.622 Type 1 diabetes mellitus with other skin ulcer (principal); L97.322 Non-pressure chronic ulcer of left ankle with fat layer exposed
CPT/HCPCS: 11042; A4554; A4930; A6216; A6219

== ENCOUNTER 2019-05-11 07:02 | Outpatient (CLI) | payer OTHER | END 2019-05-11 12:41 | disposition home or self-care (01) | LOC: WOUND MED 07:02 | DX: E10.622 Type 1 diabetes mellitus with other skin ulcer (principal); L97.322 Non-pressure chronic ulcer of left ankle with fat layer exposed | CPT/HCPCS: 11042; A4554; A4930; A6216; A6219 ==

== ENCOUNTER 2019-05-18 07:37 | Outpatient (CLI) | payer OTHER | END 2019-05-18 08:00 | disposition home or self-care (01) | LOC: WOUND MED 07:37 | DX: E10.622 Type 1 diabetes mellitus with other skin ulcer (principal); L97.322 Non-pressure chronic ulcer of left ankle with fat layer exposed | CPT/HCPCS: 11042; A4554; A4930; A6216; A6219 ==

== ENCOUNTER 2019-05-25 08:31 | Outpatient (CLI) | payer OTHER | END 2019-05-25 09:00 | disposition home or self-care (01) | LOC: WOUND MED 08:31 | DX: E10.622 Type 1 diabetes mellitus with other skin ulcer (principal); L97.322 Non-pressure chronic ulcer of left ankle with fat layer exposed | CPT/HCPCS: 11042; A4554; A4930; A6216; A6219 ==

== ENCOUNTER 2019-06-01 07:25 | Outpatient (CLI) | payer OTHER | END 2019-06-01 09:00 | disposition home or self-care (01) | LOC: WOUND MED 07:25 | DX: E10.622 Type 1 diabetes mellitus with other skin ulcer (principal); L97.322 Non-pressure chronic ulcer of left ankle with fat layer exposed | CPT/HCPCS: 11042; A4554; A4930; A6216; A6219 ==

== ENCOUNTER 2019-06-15 07:01 | Outpatient (CLI) | payer OTHER | END 2019-06-15 07:07 | disposition home or self-care (01) | LOC: LAB 07:01 | DX: D64.89 Other specified anemias (principal); I10 Essential (primary) hypertension; E78.00 Pure hypercholesterolemia, unspecified; N39.0 Urinary tract infection, site not specified; E03.8 Other specified hypothyroidism; E11.69 Type 2 diabetes mellitus with other specified complication ==

== ENCOUNTER 2019-06-15 08:49 | Outpatient (CLI) | payer OTHER | END 2019-06-15 09:22 | disposition home or self-care (01) | LOC: WOUND MED 08:49 | DX: E10.622 Type 1 diabetes mellitus with other skin ulcer (principal); L97.322 Non-pressure chronic ulcer of left ankle with fat layer exposed | CPT/HCPCS: G0463; A4554; A4930; A6216; A6219 ==

== ENCOUNTER 2019-06-22 07:38 | Outpatient (CLI) | payer OTHER | END 2019-06-22 08:25 | disposition home or self-care (01) | LOC: WOUND MED 07:38 | DX: E10.622 Type 1 diabetes mellitus with other skin ulcer (principal); L97.322 Non-pressure chronic ulcer of left ankle with fat layer exposed | CPT/HCPCS: 11042; A4554; A4930; A6216; A6219 ==

== ENCOUNTER 2019-06-29 08:54 | Outpatient (CLI) | payer OTHER | END 2019-06-29 09:56 | disposition home or self-care (01) | LOC: WOUND MED 08:54 | DX: E10.622 Type 1 diabetes mellitus with other skin ulcer (principal); L97.322 Non-pressure chronic ulcer of left ankle with fat layer exposed | CPT/HCPCS: 11042; A4554; A4930; A6216; A6220; A6266 ==

== ENCOUNTER 2019-07-06 08:02 | Outpatient (CLI) | payer OTHER | END 2019-07-06 10:16 | disposition home or self-care (01) | LOC: WOUND MED 08:02 | DX: E10.622 Type 1 diabetes mellitus with other skin ulcer (principal); L97.322 Non-pressure chronic ulcer of left ankle with fat layer exposed | CPT/HCPCS: 11042; A4554; A4930; A6216; A6219; A6220 ==

== ENCOUNTER 2019-07-13 07:40 | Outpatient (CLI) | payer OTHER | END 2019-07-13 08:50 | disposition home or self-care (01) | LOC: WOUND MED 07:40 | DX: E10.622 Type 1 diabetes mellitus with other skin ulcer (principal); L97.322 Non-pressure chronic ulcer of left ankle with fat layer exposed | CPT/HCPCS: 11042; A4554; A4930; A6216; A6220 ==

== ENCOUNTER 2019-07-16 11:49 | Outpatient (CLI) | payer OTHER | END 2019-07-16 11:51 | disposition home or self-care (01) | LOC: RAD 11:49 | DX: R06.89 Other abnormalities of breathing (principal) ==

== ENCOUNTER 2019-07-20 07:24 | Outpatient (CLI) | payer OTHER | END 2019-07-20 09:00 | disposition home or self-care (01) | LOC: WOUND MED 07:24 | DX: E10.622 Type 1 diabetes mellitus with other skin ulcer (principal); L97.322 Non-pressure chronic ulcer of left ankle with fat layer exposed | CPT/HCPCS: 11042; A4554; A4930; A6216; A6266 ==

== ENCOUNTER 2019-07-27 07:57 | Outpatient (CLI) | payer OTHER | END 2019-07-27 10:02 | disposition home or self-care (01) | LOC: WOUND MED 07:57 | DX: E10.622 Type 1 diabetes mellitus with other skin ulcer (principal); L97.322 Non-pressure chronic ulcer of left ankle with fat layer exposed | CPT/HCPCS: 11042; A4554; A4930; A6216; A6220 ==

== ENCOUNTER → 2019-07-28 07:07 | Outpatient (CLI) | payer OTHER | END | disposition home or self-care (01) | LOC: LAB 07:07 | DX: C16.3 Malignant neoplasm of pyloric antrum (principal); E72.11 Homocystinuria; E72.12 Methylenetetrahydrofolate reductase deficiency; D50.0 Iron deficiency anemia secondary to blood loss (chronic); R97.0 Elevated carcinoembryonic antigen [CEA]; I80.222 Phlebitis and thrombophlebitis of left popliteal vein; Z79.01 Long term (current) use of anticoagulants; I26.99 Other pulmonary embolism without acute cor pulmonale; I10 Essential (primary) hypertension; E08.65 Diabetes mellitus due to underlying condition with hyperglycemia; I25.110 Atherosclerotic heart disease of native coronary artery with unstable angina pectoris; I45.6 Pre-excitation syndrome; E53.8 Deficiency of other specified B group vitamins; I73.89 Other specified peripheral vascular diseases; K25.4 Chronic or unspecified gastric ulcer with hemorrhage; C16.8 Malignant neoplasm of overlapping sites of stomach; E03.8 Other specified hypothyroidism; D68.8 Other specified coagulation defects ==

== ENCOUNTER 2019-07-30 07:40 | Outpatient (CLI) | payer OTHER | END 2019-07-30 08:11 | disposition home or self-care (01) | LOC: WOUND MED 07:40 | DX: E10.622 Type 1 diabetes mellitus with other skin ulcer (principal); L97.322 Non-pressure chronic ulcer of left ankle with fat layer exposed | CPT/HCPCS: 97602; A4554; A4930; A6216; A6266 ==

== ENCOUNTER 2019-08-03 09:01 | Outpatient (CLI) | payer OTHER | END 2019-08-03 10:11 | disposition home or self-care (01) | LOC: WOUND MED 09:01 | DX: E10.622 Type 1 diabetes mellitus with other skin ulcer (principal); L97.322 Non-pressure chronic ulcer of left ankle with fat layer exposed | CPT/HCPCS: 11042; A4554; A4930; A6216; A6219 ==

== ENCOUNTER 2019-08-06 07:56 | Outpatient (CLI) | payer OTHER | END 2019-08-06 08:30 | disposition home or self-care (01) | LOC: WOUND MED 07:56 | DX: E10.622 Type 1 diabetes mellitus with other skin ulcer (principal); L97.322 Non-pressure chronic ulcer of left ankle with fat layer exposed | CPT/HCPCS: 97602; A4554; A4930; A6216; A6266 ==

== ENCOUNTER 2019-08-11 07:35 | Outpatient (CLI) | payer OTHER | END 2019-08-11 08:45 | disposition home or self-care (01) | LOC: WOUND MED 07:35 | DX: E10.622 Type 1 diabetes mellitus with other skin ulcer (principal); L97.322 Non-pressure chronic ulcer of left ankle with fat layer exposed | CPT/HCPCS: 11042; A4554; A4930; A6196; A6216 ==

== ENCOUNTER 2019-08-18 07:42 | Outpatient (CLI) | payer OTHER | END 2019-08-18 08:00 | disposition home or self-care (01) | LOC: WOUND MED 07:42 | DX: E10.622 Type 1 diabetes mellitus with other skin ulcer (principal); L97.322 Non-pressure chronic ulcer of left ankle with fat layer exposed | CPT/HCPCS: 11042; A4554; A4930; A6216; A6266 ==

== ENCOUNTER 2019-08-25 07:34 | Outpatient (CLI) | payer OTHER | END 2019-08-25 09:22 | disposition home or self-care (01) | LOC: WOUND MED 07:34 | DX: E10.622 Type 1 diabetes mellitus with other skin ulcer (principal); L97.322 Non-pressure chronic ulcer of left ankle with fat layer exposed | CPT/HCPCS: 11042; A4554; A4930; A6216; A6219; A6266 ==

== ENCOUNTER 2019-09-01 07:45 | Outpatient (CLI) | payer OTHER | END 2019-09-01 08:30 | disposition home or self-care (01) | LOC: WOUND MED 07:45 | DX: E10.622 Type 1 diabetes mellitus with other skin ulcer (principal); L97.322 Non-pressure chronic ulcer of left ankle with fat layer exposed | CPT/HCPCS: 11042; A4554; A4930; A6216; A6266 ==

== ENCOUNTER 2019-09-08 09:57 | Outpatient (CLI) | payer OTHER | END 2019-09-08 10:30 | disposition home or self-care (01) | LOC: WOUND MED 09:57 | DX: E10.622 Type 1 diabetes mellitus with other skin ulcer (principal); L97.322 Non-pressure chronic ulcer of left ankle with fat layer exposed | CPT/HCPCS: 11042; A4554; A4930; A6216; A6220 ==

== ENCOUNTER 2019-09-15 07:35 | Outpatient (CLI) | payer OTHER | END 2019-09-15 08:30 | disposition home or self-care (01) | LOC: WOUND MED 07:35 | DX: E10.622 Type 1 diabetes mellitus with other skin ulcer (principal); L97.322 Non-pressure chronic ulcer of left ankle with fat layer exposed | CPT/HCPCS: 11042; A4554; A4930; A6216 ==

== ENCOUNTER 2019-09-22 07:43 | Outpatient (CLI) | payer OTHER | END 2019-09-22 09:00 | disposition home or self-care (01) | LOC: WOUND MED 07:43 | DX: E10.622 Type 1 diabetes mellitus with other skin ulcer (principal); L97.322 Non-pressure chronic ulcer of left ankle with fat layer exposed | CPT/HCPCS: 11042; A4554; A4930; A6216 ==

== ENCOUNTER 2019-09-29 07:21 | Outpatient (CLI) | payer OTHER | END 2019-09-29 08:00 | disposition home or self-care (01) | LOC: WOUND MED 07:21 | DX: E10.622 Type 1 diabetes mellitus with other skin ulcer (principal); L97.322 Non-pressure chronic ulcer of left ankle with fat layer exposed | CPT/HCPCS: 11042; A4554; A4930; A6216; A6266 ==

== ENCOUNTER 2019-10-13 07:24 | Outpatient (CLI) | payer OTHER | END 2019-10-13 08:30 | disposition home or self-care (01) | LOC: WOUND MED 07:24 | DX: E10.622 Type 1 diabetes mellitus with other skin ulcer (principal); L97.322 Non-pressure chronic ulcer of left ankle with fat layer exposed | CPT/HCPCS: 11042; A4554; A4930; A6216; A6266 ==

== ENCOUNTER 2019-10-20 07:43 | Outpatient (CLI) | payer OTHER | END 2019-10-20 10:00 | disposition home or self-care (01) | LOC: WOUND MED 07:43 | DX: E10.622 Type 1 diabetes mellitus with other skin ulcer (principal); L97.322 Non-pressure chronic ulcer of left ankle with fat layer exposed | CPT/HCPCS: 11042; A4554; A4930; A6216 ==

== ENCOUNTER 2019-10-27 09:49 | Outpatient (CLI) | payer OTHER | END 2019-10-27 11:13 | disposition home or self-care (01) | LOC: WOUND MED 09:49 | PROVIDERS: ATTEND Specialist | DX: E10.622 Type 1 diabetes mellitus with other skin ulcer (principal); L97.322 Non-pressure chronic ulcer of left ankle with fat layer exposed | CPT/HCPCS: 11042; A4554; A4930; A6216; A6219 ==

== ENCOUNTER 2019-11-03 06:51 | Outpatient (CLI) | payer OTHER | END 2019-11-03 06:55 | disposition home or self-care (01) | LOC: LAB 06:51 | PROVIDERS: ATTEND Internal Medicine Hematology & Oncology | DX: D50.8 Other iron deficiency anemias (principal); I10 Essential (primary) hypertension; D68.8 Other specified coagulation defects; E03.8 Other specified hypothyroidism; R97.0 Elevated carcinoembryonic antigen [CEA]; R97.8 Other abnormal tumor markers; C16.3 Malignant neoplasm of pyloric antrum; E72.11 Homocystinuria; E72.12 Methylenetetrahydrofolate reductase deficiency; D50.0 Iron deficiency anemia secondary to blood loss (chronic); I80.222 Phlebitis and thrombophlebitis of left popliteal vein; Z79.01 Long term (current) use of anticoagulants; I26.99 Other pulmonary embolism without acute cor pulmonale; I48.20 Chronic atrial fibrillation, unspecified; E08.65 Diabetes mellitus due to underlying condition with hyperglycemia; I25.110 Atherosclerotic heart disease of native coronary artery with unstable angina pectoris; I45.6 Pre-excitation syndrome; E53.8 Deficiency of other specified B group vitamins; I73.89 Other specified peripheral vascular diseases; K25.4 Chronic or unspecified gastric ulcer with hemorrhage; C16.8 Malignant neoplasm of overlapping sites of stomach ==

== ENCOUNTER 2019-11-03 07:31 | Outpatient (CLI) | payer OTHER | END 2019-11-03 08:30 | disposition home or self-care (01) | LOC: WOUND MED 07:31 | PROVIDERS: ATTEND Specialist | DX: E10.622 Type 1 diabetes mellitus with other skin ulcer (principal); L97.322 Non-pressure chronic ulcer of left ankle with fat layer exposed | CPT/HCPCS: 11042; A4554; A4930; A6216; A6219 ==

== ENCOUNTER 2019-11-06 10:57 | Outpatient (CLI) | payer OTHER | END 2019-11-06 11:55 | disposition home or self-care (01) | LOC: WOUND MED 10:57 | PROVIDERS: ATTEND Specialist | DX: E10.622 Type 1 diabetes mellitus with other skin ulcer (principal); L97.322 Non-pressure chronic ulcer of left ankle with fat layer exposed | CPT/HCPCS: 97602; A4554; A4930; A6216; A6219 ==

== ENCOUNTER 2019-11-10 07:24 | Outpatient (CLI) | payer OTHER | END 2019-11-10 09:44 | disposition home or self-care (01) | LOC: WOUND MED 07:24 | PROVIDERS: ATTEND Specialist | DX: E10.622 Type 1 diabetes mellitus with other skin ulcer (principal); L97.322 Non-pressure chronic ulcer of left ankle with fat layer exposed | CPT/HCPCS: 11042; A4554; A4930; A6216; A6219 ==

== ENCOUNTER 2019-11-17 07:21 | Outpatient (CLI) | payer OTHER | END 2019-11-17 09:00 | disposition home or self-care (01) | LOC: WOUND MED 07:21 | PROVIDERS: ATTEND Specialist | DX: E10.622 Type 1 diabetes mellitus with other skin ulcer (principal); L97.322 Non-pressure chronic ulcer of left ankle with fat layer exposed | CPT/HCPCS: 11042; A4554; A4930; A6216; A6219 ==

== ENCOUNTER → 2019-11-24 | Outpatient (CLI) | payer OTHER | END | disposition home or self-care (01) | LOC: WOUND MED 07:15 | PROVIDERS: ATTEND Specialist | DX: E10.622 Type 1 diabetes mellitus with other skin ulcer (principal); L97.322 Non-pressure chronic ulcer of left ankle with fat layer exposed | CPT/HCPCS: 11042; A4554; A4930; A6216; A6219 ==

== ENCOUNTER 2019-12-01 07:48 | Outpatient (CLI) | payer OTHER | END 2019-12-01 08:17 | disposition home or self-care (01) | LOC: WOUND MED 07:48 | PROVIDERS: ATTEND Specialist | DX: E10.622 Type 1 diabetes mellitus with other skin ulcer (principal); L97.322 Non-pressure chronic ulcer of left ankle with fat layer exposed | CPT/HCPCS: G0463; A4554; A4930; A6216 ==

== ENCOUNTER → 2020-02-20 08:01 | Outpatient (CLI) | payer OTHER | END | disposition home or self-care (01) | LOC: LAB 08:01 | PROVIDERS: ATTEND Internal Medicine | DX: D64.89 Other specified anemias (principal); I10 Essential (primary) hypertension; E11.9 Type 2 diabetes mellitus without complications; E78.00 Pure hypercholesterolemia, unspecified; N39.0 Urinary tract infection, site not specified; E03.8 Other specified hypothyroidism ==

== ENCOUNTER 2020-02-23 07:17 | Outpatient (CLI) | payer OTHER | END 2020-02-23 07:24 | disposition home or self-care (01) | LOC: LAB 07:17 | PROVIDERS: ATTEND Internal Medicine Cardiovascular Disease | DX: I11.9 Hypertensive heart disease without heart failure (principal); E78.2 Mixed hyperlipidemia ==

== ENCOUNTER 2020-05-07 08:56 | Outpatient (CLI) | payer OTHER | END 2020-05-07 09:07 | disposition home or self-care (01) | LOC: LAB 08:56 | PROVIDERS: ATTEND Internal Medicine Cardiovascular Disease | DX: E11.9 Type 2 diabetes mellitus without complications (principal); I11.9 Hypertensive heart disease without heart failure ==

== ENCOUNTER → 2020-05-09 | Outpatient (CLI) | payer OTHER | END | disposition home or self-care (01) | LOC: TOM 07:13 | PROVIDERS: ATTEND Surgery Surgical Oncology | DX: Q61.01 Congenital single renal cyst (principal); C16.3 Malignant neoplasm of pyloric antrum | CPT/HCPCS: 74177; Q9965 ==

== ENCOUNTER 2020-06-09 07:37 | Outpatient (CLI) | payer OTHER | END 2020-06-09 07:43 | disposition home or self-care (01) | LOC: LAB 07:37 | PROVIDERS: ATTEND Internal Medicine Hematology & Oncology | DX: D50.8 Other iron deficiency anemias (principal); I10 Essential (primary) hypertension; E03.8 Other specified hypothyroidism; D68.8 Other specified coagulation defects; R97.0 Elevated carcinoembryonic antigen [CEA]; R97.8 Other abnormal tumor markers; C16.3 Malignant neoplasm of pyloric antrum; E72.11 Homocystinuria; E72.12 Methylenetetrahydrofolate reductase deficiency; D50.0 Iron deficiency anemia secondary to blood loss (chronic); I80.222 Phlebitis and thrombophlebitis of left popliteal vein; Z79.01 Long term (current) use of anticoagulants; I26.99 Other pulmonary embolism without acute cor pulmonale; I48.21 Permanent atrial fibrillation; E08.65 Diabetes mellitus due to underlying condition with hyperglycemia; I25.110 Atherosclerotic heart disease of native coronary artery with unstable angina pectoris; I45.6 Pre-excitation syndrome; E53.8 Deficiency of other specified B group vitamins; I73.89 Other specified peripheral vascular diseases; K25.4 Chronic or unspecified gastric ulcer with hemorrhage; C16.8 Malignant neoplasm of overlapping sites of stomach ==

== ENCOUNTER 2020-08-09 08:33 | Outpatient (CLI) | payer OTHER | END 2020-08-09 08:40 | disposition home or self-care (01) | LOC: LAB 08:33 | PROVIDERS: ATTEND Internal Medicine | DX: I48.91 Unspecified atrial fibrillation (principal); D64.89 Other specified anemias; I10 Essential (primary) hypertension; E11.9 Type 2 diabetes mellitus without complications; E78.00 Pure hypercholesterolemia, unspecified; N39.0 Urinary tract infection, site not specified; E03.8 Other specified hypothyroidism ==

== ENCOUNTER 2020-09-19 07:27 | Outpatient (CLI) | payer OTHER | END 2020-09-19 07:28 | disposition home or self-care (01) | LOC: LAB 07:27 | PROVIDERS: ATTEND Internal Medicine Hematology & Oncology | DX: D50.8 Other iron deficiency anemias (principal); I10 Essential (primary) hypertension; R74.02 Elevation of levels of lactic acid dehydrogenase [LDH]; K76.89 Other specified diseases of liver; D51.8 Other vitamin B12 deficiency anemias; D63.1 Anemia in chronic kidney disease; E03.8 Other specified hypothyroidism; D68.8 Other specified coagulation defects; D68.59 Other primary thrombophilia; D68.61 Antiphospholipid syndrome; E72.11 Homocystinuria; R97.0 Elevated carcinoembryonic antigen [CEA]; R97.8 Other abnormal tumor markers; C16.3 Malignant neoplasm of pyloric antrum; E72.12 Methylenetetrahydrofolate reductase deficiency; D50.0 Iron deficiency anemia secondary to blood loss (chronic); I80.222 Phlebitis and thrombophlebitis of left popliteal vein; I26.99 Other pulmonary embolism without acute cor pulmonale; I48.20 Chronic atrial fibrillation, unspecified; E08.65 Diabetes mellitus due to underlying condition with hyperglycemia; D52.9 Folate deficiency anemia, unspecified; I25.110 Atherosclerotic heart disease of native coronary artery with unstable angina pectoris; I45.6 Pre-excitation syndrome; I73.89 Other specified peripheral vascular diseases; K25.4 Chronic or unspecified gastric ulcer with hemorrhage; C16.8 Malignant neoplasm of overlapping sites of stomach ==

== ENCOUNTER → 2020-10-11 08:38 | Outpatient (CLI) | payer OTHER | END | disposition home or self-care (01) | LOC: LAB 08:38 | PROVIDERS: ATTEND Surgery Surgical Oncology | DX: C16.3 Malignant neoplasm of pyloric antrum (principal); D64.89 Other specified anemias; I48.91 Unspecified atrial fibrillation ==

== ENCOUNTER 2020-12-03 11:53 | Inpatient (IN) | payer OTHER ==
[~2020-12-03] VITALS: Ht 175.3 cm; Wt 83.5 kg
[2020-12-03] MEDS ORDERED: TAMS0.4C (12:20)
[2020-12-03] MEDS ORDERED: TOVIAZ8 MG (12:21)
[2020-12-03] MEDS ORDERED: ALPHAGAN P5 M2 (12:22)
[2020-12-03] MEDS ORDERED: LEVOTHYROXINE50 MC1 (12:22)
--- NOTE | 2020-12-03 12:57 | NUR ---
SE RECIBE PTE ALERTA Y ORIENTADO X3,ACOMPANADO POR FAMILIAR REFIERE SENTIRSE ASFICIADO SE LE MILDRED S/V SE LE PRESENTA AL LA TERI.BLEDSOE SE UBICA AREA DE OBSERVACION.
--- NOTE | 2020-12-03 14:18 | NUR ---
PACIENTE EVALUADO POR DRA. BLEDSOE. MRSJudi TREJOA COLECTA MUESTRAS DE CHETNA ADRIAN ORDEN MEDICA Y SIGUIENDO TECNICAS ASEPTICAS. SE ADMINISTRA TERAPIA INTRAVENOSA ORDENADA Y SE ORIENTA A PACIENTE SOBRE INDICACION DE LA MISMA. SE ENVIAN MUESTRAS AL LABORATORIO ROTULADAS. PENDIENTE REALIZACION DE ESTUDIO DE LATOYA X.
--- NOTE | 2020-12-03 20:50 | NUR ---
1615 SE RECIBE PTE MASCULINO ALERTA Y ORIENTADO X3 DE AREA DE OBSREVACION PTE CON PATRON RESPIRATORIO IRREGULAR. SE UBICA EN CAMA #2 DE UNIDAD DE CRITICO SE CONECTA A MONITOR CARDIACO Y OXIMETRIA DE PULSO CONTINUA. SE CANALIZA VENA EN MANO R+ CON ANGIO #18, BAJO MEDIDAS ASEPTICAS, PATENTE RHODA DE EDEMA Y ERITEMA. SE COLECTAN MUESTRAS DE LABORATORIO, BAJO MEDIDAS ASEPTICAS. SE ADMINISTRAN MEDICAMENTOS, BAJO MEDIDAS ASEPTICAS, ADRIAN ORDEN MEDICA. PERSONAL DE TERAPIA RESPIRATORIA REALIZA ABGS A PTE. MR.PAGAN TENORIO SONDA URINARIA, F#16, BAJO MEDIDAS ASEPTICAS Y ESTERILES; SE OSEBRVA EGRESO DE ORINA COLOR AMARILLO SCOOTER, CON APROXIMADAMENTE 100ML. SE MILDRED S/V Y SE REPROTAN. 1640 PERSONAL DE TERAPIA RESPIRATORIA MRS.ALVAREZ TENORIO BIPAP A PTE CON PARAMETROS: IPAP:16, EPAP:5, RR:15, FIO2:100%. PTE TOLERANDO AL MOMENTO. 1650 PERSONAL DE RADIOLOGIA REALIZA XRAY PORTABLE. 1700 NOTIFICA A PERSONAL DE SONOGRAFIA PARA ECHO. 1730 SE MILDRED Y REPORTAN S/V. SE MANTIENE BAJO OBSERVACION POR CAMBIOS. 184 SE OFRECE LOLA PTE AL MOMENTO DORMIDDO. TOLERANDO BIPAP AL MOMENTO. SE MANTIENE BAJO OBSERVACION. 0 EVALUA PTE. 1999 REALIZA CAMBIOS EN PARAMETROS DE VENTILADOR. 2049 SE TRASLADA PTE CONECTADO A MONITOR CARDIACO Y CON BIPAP, EN COMPANIA DE PERSONAL DE TRANSPORTE Y PERSONAL DE TERAPIA RESPIRATORIA PARA ESTUDIO CT. 2099 PTE TOLERA ESTUDIO. SE UBICA NUEVAMENTE EN AREA DE CRITICO. SE REALIZA CAMBIO DE PANAL EN ASISTENCIA DE Y . SE CHAYA COMODIDAD Y SE MANTIENE BAJO OBSERVACION POR CAMBIOS.
== END 2020-12-08 10:27 | disposition designated cancer center or children's hospital (05) | DRG 291 ==
LOC: ER 11:53 → ICU-2 21:14 → SEC-K 12-05 10:16 → MEDI 12-05 11:39
PROVIDERS: ADMIT Internal Medicine; ATTEND Internal Medicine
PROC: 5A09357 Assistance with Respiratory Ventilation, Less than 24 Consecutive Hours, Continuous Positive Airway Pressure (ICD-10-PCS; 2020-12-03)
PROC: 3E0F7SF Introduction of Other Gas into Respiratory Tract, Via Natural or Artificial Opening (ICD-10-PCS; 2020-12-04)
PROC: 4A12X4Z Monitoring of Cardiac Electrical Activity, External Approach (ICD-10-PCS; principal; 2020-12-05)
DX: I11.0 Hypertensive heart disease with heart failure (principal); J96.00 Acute respiratory failure, unspecified whether with hypoxia or hypercapnia; I48.20 Chronic atrial fibrillation, unspecified; I50.33 Acute on chronic diastolic (congestive) heart failure; E11.65 Type 2 diabetes mellitus with hyperglycemia; D50.0 Iron deficiency anemia secondary to blood loss (chronic); E03.8 Other specified hypothyroidism; I25.10 Atherosclerotic heart disease of native coronary artery without angina pectoris; Z79.01 Long term (current) use of anticoagulants; Z20.822 Contact with and (suspected) exposure to COVID-19; Z79.84 Long term (current) use of oral hypoglycemic drugs

== ENCOUNTER 2023-11-27 07:39 | Outpatient (CLI) | payer OTHER ==
[~2023-11-27 07:39] MED LIST changes: +ALPHAGAN P5 M2; +LEVOTHYROXINE50 MC1; +TAMS0.4C; +TOVIAZ8 MG
[2023-11-27 09:11] LABS: PH,URINE 5.5 (5.0-8.0); URINE APPEARANCE Clear; URINE BILIRRUBIN Negative (NEGATIVE); URINE BLOOD Negative; URINE COLOR Dark Yellow; URINE GLUCOSE Negative (NEGATIVE); URINE LEUKOCYTE Small; URINE NITRATE Negative; URINE PROTEIN Trace (NEGATIVE)
[2023-11-27 09:16] LABS: URINE EPITHELIAL CELLS 9.1 uL (0.0-38.8); URINE RBC 2.1 uL (0.0-20.8); URINE WBC 26.1 uL (0.0-23.2)
[2023-11-27 09:22] LABS: CHOL HDL RATIO 1.4 (0-5.0); CHOLESTEROL 92 mg/dL (0-200); HDL 65 mg/dl (40-60); LDL 18 mg/dl (0-130); T4 TOTAL 10.63 UG/DL (4.5-12.1); TRIGLYCERIDES 43 mg/dL (0-150); VLDL 8 (0-39)
[2023-11-27 09:25] LABS: C-REACTIVE PROTEIN < 0.29 MG/DL (0.00-0.29)
== END 2023-11-27 07:46 | disposition home or self-care (01) ==
LOC: LAB 07:39
PROVIDERS: ATTEND Internal Medicine
DX: C18.2 Malignant neoplasm of ascending colon (principal); I10 Essential (primary) hypertension; E11.9 Type 2 diabetes mellitus without complications; I50.22 Chronic systolic (congestive) heart failure; R19.5 Other fecal abnormalities; E03.9 Hypothyroidism, unspecified; Z85.028 Personal history of other malignant neoplasm of stomach; N40.1 Benign prostatic hyperplasia with lower urinary tract symptoms; Z95.810 Presence of automatic (implantable) cardiac defibrillator; I50.20 Unspecified systolic (congestive) heart failure; Z95.0 Presence of cardiac pacemaker; E55.9 Vitamin D deficiency, unspecified

== ENCOUNTER 2023-12-25 10:34 | Outpatient (CLI) | payer OTHER | END 2023-12-25 10:35 | disposition home or self-care (01) | LOC: NUCLEAR 10:34 | PROVIDERS: ATTEND Psychiatry & Neurology Clinical Neurophysiology | DX: G31.83 Neurocognitive disorder with Lewy bodies (principal) | CPT/HCPCS: 78803; A9557 ==

== ENCOUNTER 2024-01-27 15:08 | Outpatient (CLI) | payer OTHER | END 2024-01-27 15:30 | disposition home or self-care (01) | LOC: SONOGRAMA 15:08 | PROVIDERS: ATTEND Internal Medicine | DX: R74.01 Elevation of levels of liver transaminase levels (principal) ==

== ENCOUNTER 2024-03-21 12:49 | Emergency (ER) | payer OTHER ==
[~2024-03-21] VITALS: Ht 175.3 cm; Wt 64.9 kg
[2024-03-21] MEDS ORDERED: LIDOCAINE HCL 1% 10ML VIAL PERCUT ONE (14:15)
[2024-03-21] MEDS ORDERED: TETANUS & DIPHTHERIA TOX,ADULT 0.5 ML VIAL IM ONE (14:15)
[2024-03-21] MEDS ORDERED: CIPROFLOXACIN HCL 500 MG TABLET PO ONE (14:30)
[2024-03-21] MEDS ORDERED: PEPCID AC20 MG PO (15:34)
[2024-03-21] MEDS ORDERED: LEVOFLOXACIN500 MG PO (15:34)
== END 2024-03-21 15:55 | disposition home or self-care (01) ==
LOC: ER 12:51
DX: S61.219A Laceration without foreign body of unspecified finger without damage to nail, initial encounter (principal); X58.XXXA Exposure to other specified factors, initial encounter; Y93.89 Activity, other specified; Y92.89 Other specified places as the place of occurrence of the external cause; Y99.8 Other external cause status; I10 Essential (primary) hypertension; E11.9 Type 2 diabetes mellitus without complications; Z79.84 Long term (current) use of oral hypoglycemic drugs; Z88.2 Allergy status to sulfonamides; Z88.6 Allergy status to analgesic agent; Z91.013 Allergy to seafood
CPT/HCPCS: 13132 ×2; 29105; 73130; 90471; 90714; 99283; J1670

== ENCOUNTER 2024-03-23 09:46 | Outpatient (CLI) | payer OTHER ==
[~2024-03-23 09:46] MED LIST changes: +LEVOFLOXACIN500 MG PO; +PEPCID AC20 MG PO
== END 2024-03-23 10:00 | disposition home or self-care (01) ==
LOC: WOUND MED 09:46
PROVIDERS: ATTEND Specialist
DX: S69.92XA Unspecified injury of left wrist, hand and finger(s), initial encounter (principal); L02.512 Cutaneous abscess of left hand; E11.9 Type 2 diabetes mellitus without complications
CPT/HCPCS: 11042; A4927; A6199; A6219; A6223

== ENCOUNTER 2024-05-04 06:52 | Outpatient (CLI) | payer OTHER | END 2024-05-04 07:00 | disposition home or self-care (01) | LOC: WOUND MED 06:52 | PROVIDERS: ATTEND Specialist | DX: L02.413 Cutaneous abscess of right upper limb (principal) | CPT/HCPCS: A4927; A6223; G0463 ==